=== PATIENT | female | born 1965 | race Caucasian/White ===

== ENCOUNTER 2019-04-12 14:05 | Inpatient (IN) | payer BC ==
[~2019-04-12] VITALS: Ht 170.2 cm; Wt 59.2 kg
[2019-04-12 14:09] VITALS: Ht 170.2 cm; Wt 59.2 kg
[2019-04-12 16:17] LABS: BASOPHIL % 0.3 % (0-2); PLATELET COUNT 277 x10^3mcL (130-400); RED CELL DISTRIBUTION WIDTH 13.1 % (11.5-14.5)
[2019-04-12 16:24] LABS: CALCIUM 9.8 mg/dL (8.5-10.1); CARBON DIOXIDE 27.8 mmol/L (21-32); CHLORIDE SERUM 95 mmol/L (98-107); CREATININE SERUM 0.6 mg/dL (0.6-1.0); GFR1 > 60 mL/min; GLUCOSE SERUM 119 mg/dL (74-106); POTASSIUM SERUM 3.8 mmol/L (3.5-5.1); SODIUM SERUM 133 mmol/L (136-145)
[2019-04-12 16:29] LABS: ALBUMIN 3.7 g/dL (3.4-5.0); ALKALINE PHOSPHATASE 66 U/L (46-116); ALT/SGPT 41 U/L (14-59); AST/SGOT 39 U/L (15-37); BILIRUBIN TOTAL 0.7 mg/dL (0.20-1.00); TOTAL PROTEIN, SERUM 8.7 g/dL (6.4-8.2)
[2019-04-12 18:08] LABS: T4(THYROXINE) 9.2 ug/dL (4.7-13.3)
[2019-04-12 19:05] LABS: CK-MB 1.6 ng/mL (0-3.6)
[2019-04-12 20:50] LABS: AMPHETAMINE QUAL UR NONE DETECTED (See below)
[2019-04-12 21:26] VITALS: BP 146/87
[2019-04-12 21:26] LABS: CHOLESTEROL/HDL RATIO 2.9
[2019-04-13 05:34] VITALS: BP 155/92
[2019-04-13 06:53] LABS: BASOPHIL % 0.1 % (0-2); PLATELET COUNT 295 x10^3mcL (130-400); RED CELL DISTRIBUTION WIDTH 13.5 % (11.5-14.5)
[2019-04-13 07:00] LABS: CALCIUM 9.1 mg/dL (8.5-10.1); CARBON DIOXIDE 25.6 mmol/L (21-32); CHLORIDE SERUM 100 mmol/L (98-107); CREATININE SERUM 0.7 mg/dL (0.6-1.0); GFR1 > 60 mL/min; GLUCOSE SERUM 122 mg/dL (74-106); POTASSIUM SERUM 3.7 mmol/L (3.5-5.1); SODIUM SERUM 136 mmol/L (136-145)
[2019-04-13 07:23] LABS: MAGNESIUM 2.3 mg/dL (1.8-2.4); PHOSPHOROUS 3.6 mg/dL (2.5-4.9)
[2019-04-13 07:30] LABS: UA SPECIFIC GRAVITY <=1.005 (1.005-1.035); microscopic required? YES; urine erythrocyte NEGATIVE (NEGATIVE)
[2019-04-13 07:31] VITALS: BP 144/85
[2019-04-13 11:50] VITALS: BP 150/80
[2019-04-13 16:11] VITALS: BP 148/87
[2019-04-13 19:58] VITALS: BP 129/76
[2019-04-14 04:50] VITALS: BP 148/57
[2019-04-14 06:19] LABS: BASOPHIL % 0.1 % (0-2)
[2019-04-14 06:42] LABS: PLATELET COUNT 306 x10^3mcL (130-400); RED CELL DISTRIBUTION WIDTH 13.9 % (11.5-14.5)
[2019-04-14 07:43] LABS: CALCIUM 9.3 mg/dL (8.5-10.1); CARBON DIOXIDE 26.7 mmol/L (21-32); CHLORIDE SERUM 102 mmol/L (98-107); CREATININE SERUM 0.7 mg/dL (0.6-1.0); GFR1 > 60 mL/min; GLUCOSE SERUM 108 mg/dL (74-106); POTASSIUM SERUM 4.4 mmol/L (3.5-5.1); SODIUM SERUM 137 mmol/L (136-145)
[2019-04-14 10:07] VITALS: BP 146/66
[2019-04-14 13:01] VITALS: BP 134/85
[2019-04-14 17:04] VITALS: BP 132/84
[2019-04-14 19:37] VITALS: BP 131/76
[2019-04-15 05:31] VITALS: BP 139/79
[2019-04-15 06:40] LABS: microscopic required? NO
[2019-04-15 06:55] LABS: BASOPHIL % 0.1 % (0-2); PLATELET COUNT 315 x10^3mcL (130-400); RED CELL DISTRIBUTION WIDTH 13.9 % (11.5-14.5)
[2019-04-15 07:33] VITALS: BP 147/74
[2019-04-15 08:02] LABS: CALCIUM 9.4 mg/dL (8.5-10.1); CARBON DIOXIDE 27.2 mmol/L (21-32); CHLORIDE SERUM 102 mmol/L (98-107); CREATININE SERUM 0.7 mg/dL (0.6-1.0); GFR1 > 60 mL/min; GLUCOSE SERUM 112 mg/dL (74-106); POTASSIUM SERUM 4.3 mmol/L (3.5-5.1); SODIUM SERUM 136 mmol/L (136-145)
[2019-04-15 08:03] LABS: UA SPECIFIC GRAVITY <=1.005 (1.005-1.035); urine erythrocyte NEGATIVE (NEGATIVE)
[2019-04-15 10:52] VITALS: BP 147/74
[2019-04-15 12:38] VITALS: BP 147/79
[2019-04-15 17:37] VITALS: BP 141/86
[2019-04-15 20:47] VITALS: BP 131/74
[2019-04-16 05:19] VITALS: BP 135/93
[2019-04-16 06:42] LABS: BASOPHIL % 0.2 % (0-2); RED CELL DISTRIBUTION WIDTH 13.6 % (11.5-14.5)
[2019-04-16 06:54] LABS: CALCIUM 9.4 mg/dL (8.5-10.1); CARBON DIOXIDE 25.3 mmol/L (21-32); CHLORIDE SERUM 98 mmol/L (98-107); CREATININE SERUM 0.8 mg/dL (0.6-1.0); GFR1 > 60 mL/min; GLUCOSE SERUM 109 mg/dL (74-106); POTASSIUM SERUM 4.2 mmol/L (3.5-5.1); SODIUM SERUM 133 mmol/L (136-145)
[2019-04-16 07:05] LABS: PLATELET COUNT 410 x10^3mcL (130-400)
[2019-04-16 09:20] VITALS: BP 121/69
[2019-04-16 13:08] VITALS: BP 132/86
[2019-04-16 17:48] VITALS: BP 127/76
[2019-04-16 20:24] VITALS: BP 127/76
[2019-04-16 21:26] VITALS: BP 151/88
== END 2019-04-16 23:42 | disposition short-term general hospital (02) | DRG 193 ==
LOC: ED 14:05 → MU 20:09 → DU 20:09 → MU 04-13 05:28
PROVIDERS: Emergency Medicine; ADMIT Student in an Organized Health Care Education/Training Program
DX: J10.1 Influenza due to other identified influenza virus with other respiratory manifestations (principal); J96.21 Acute and chronic respiratory failure with hypoxia; E87.1 Hypo-osmolality and hyponatremia; M62.82 Rhabdomyolysis; M48.54XA Collapsed vertebra, not elsewhere classified, thoracic region, initial encounter for fracture; J44.0 Chronic obstructive pulmonary disease with (acute) lower respiratory infection; J44.1 Chronic obstructive pulmonary disease with (acute) exacerbation; E87.8 Other disorders of electrolyte and fluid balance, not elsewhere classified; J20.9 Acute bronchitis, unspecified; Z60.2 Problems related to living alone; Z98.1 Arthrodesis status; Z82.5 Family history of asthma and other chronic lower respiratory diseases; Z87.891 Personal history of nicotine dependence
CPT/HCPCS: 36600; 83880; 87804; G0378; J0132; J0360; J0456; J0696; J2920; J2930; J7030; J7060; J7620; J7626; J7644; Q9967